=== PATIENT | male | born 1960 | race American Indian/Alaskan Native ===

== ENCOUNTER 2021-02-28 09:53 | Emergency (ER) | payer MEDICARE ==
--- NOTE | 2021-02-28 10:50 | XRay Report ---
CHEST 2 VIEWS INDICATION / CLINICAL INFORMATION: Chest Pain. COMPARISON: None available. FINDINGS: SUPPORT DEVICES: None. HEART / MEDIASTINUM: No significant abnormality. LUNGS / PLEURA: No significant pulmonary or pleural abnormality. No pneumothorax. ADDITIONAL FINDINGS: No significant additional findings. IMPRESSION: 1. No acute findings. Signer Name: Niels Orellana MD Signed: 02/28/2021 10:46 AM Workstation Name: [id number]
[2021-02-28 11:10] LABS: Basophils # (Auto) 0.1 K/mm3 (0.0-0.1); Basophils % (Auto) 2.4 % (0.0-1.8); Eosinophils # (Auto) 0.1 K/mm3 (0.0-0.4); Eosinophils % (Auto) 2.6 % (0.0-4.3); Hematocrit 46.6 % (35.5-45.6); Hemoglobin 15.2 gm/dl (11.8-15.2); Lymphocytes # (Auto) 0.9 K/mm3 (1.2-5.4); Lymphocytes % (Auto) 16.9 % (13.4-35.0); Mean Corpuscular HGB Conc 33 % (32-34); Monocytes # (Auto) 0.5 K/mm3 (0.0-0.8); Monocytes % (Auto) 9.4 % (0.0-7.3); Platelet Count 189 K/mm3 (140-440); Red Blood Count 6.86 M/mm3 (3.65-5.03); Red Cell Distribution Width 16.5 % (13.2-15.2)
[2021-02-28 11:22] LABS: Mean Corpuscular Volume 68 fl (84-94)
[2021-02-28 11:39] LABS: Alanine Aminotransferase 16 units/L (7-56); Albumin 4.6 g/dL (3.9-5); BUN/Creatinine Ratio 14; Blood Urea Nitrogen 14 mg/dL (9-20); Hemolysis Index 3
[2021-02-28] MEDS ORDERED: ALUM-MAG HYDROXIDE-SIMETHICONE 200-200-20MG/5ML ORAL LIQD 30 ML PO ONE (14:15)
[2021-02-28] MEDS ORDERED: LIDOCAINE VISCOUS 2% 15 ML ORAL LIQD PO ONE (14:15)
--- NOTE | 2021-02-28 14:19 | Emergency Department Report ---
ED Chest Pain HPI - General Chief Complaint: Chest Pain Stated Complaint: CHEST PAIN Time Seen by Provider: 02/28/21 14:15 Source: patient Mode of arrival: Ambulatory Limitations: No Limitations - History of Present Illness Initial Comments: 60-year-old male, no past medical history, presents to ED with epigastric pain. Patient states he has had "a funny feeling" in his epigastric area after eating at [employer] 2 days ago. Patient reports some nausea and small amount of emesis. Patient also states she coughed up a small amount of blood. He denies any shortness of breath at this time. He denies fever. He denies any leg pain or swelling. MD Complaint: chest pain -: days(s) (2) Onset: during rest Pain Location: epigastric Pain Radiation: none Severity: moderate Quality: other (Unable to describe) Consistency: intermittent Improves With: nothing Worsens With: nothing re: nausea, vomting. denies: dyspnea Other Symptoms: cough. denies: fever, leg swelling - Related Data Previous Rx's Medication Instructions Recorded Last Taken Type Pantoprazole [Protonix TAB] 20 mg PO QDAY #30 tablet. 02/28/21 Unknown Rx Allergies Allergy/AdvReac Type Severity Reaction Status Date / Time No Known Allergies Allergy Unverified 02/28/21 09:54 Heart Score - HEART Score History: Slightly suspicious EKG: Non-specific Age: 45-65 Risk factors: 1-2 risk factors Troponin: < normal limit HEART Score: 3 - EKG Read Time Time EKG Completed: 10:00 EKG Read Time: 10:02 ED Review of Systems ROS: Stated complaint: CHEST PAIN Other details as noted in HPI Comment: All other systems reviewed and negative Constitutional: denies: fever Respiratory: cough. denies: shortness of breath Cardiovascular: chest pain Gastrointestinal: abdominal pain, nausea, vomiting Musculoskeletal: other (Denies leg pain and swelling) ED Past Medical Hx - Past Medical History Previous Medical History?: No - Surgical History Additional Surgical History: BACK - Medications Home Medications: Home Medications Medication Instructions Recorded Confirmed Last Taken Type Pantoprazole [Protonix TAB] 20 mg PO QDAY #30 tablet. 02/28/21 Unknown Rx ED Physical Exam - General Limitations: No Limitations General appearance: alert, in no apparent distress - Head Head exam: Present: atraumatic, normocephalic - Eye Eye exam: Present: normal appearance, EOMI - ENT ENT exam: Present: mucous membranes moist - Neck Neck exam: Present: normal inspection - Respiratory Respiratory exam: Present: normal lung sounds bilaterally. Absent: respiratory distress - Cardiovascular Cardiovascular Exam: Present: normal rhythm, bradycardia - GI/Abdominal GI/Abdominal exam: Present: soft, tenderness (Epigastric). Absent: distended - Extremities Exam Extremities exam: Present: normal inspection. Absent: pedal edema, calf tenderness - Neurological Exam Neurological exam: Present: alert, oriented X3 - Psychiatric Psychiatric exam: Present: normal affect, normal mood - Skin Skin exam: Present: warm, dry, intact, normal color ED Course Vital Signs 02/28/21 02/28/21 02/28/21 10:05 12:23 16:05 Temperature 98.1 F Pulse Rate 45 L 47 L 52 L Respiratory 20 18 Rate Blood Pressure 145/67 136/77 Blood Pressure 147/74 [Right] O2 Sat by Pulse 100 100 100 Oximetry - Reevaluation(s) Reevaluation #1: 02/28/21 15:09 D-dimer result entered as "> 135". Spoke w/ lab engineer. She confirms D-dimer result is LESS THAN 135. ED Medical Decision Making - Lab Data Result diagrams: 02/28/21 10:33 02/28/21 13:43 - EKG Data -: EKG Interpreted by Me EKG shows normal: sinus rhythm, axis, intervals, QRS complexes Rate: bradycardia - EKG Data Interpretation: nonspecific ST-T wave kell - Radiology Data Radiology results: report reviewed, image reviewed - Medical Decision Making 60-year-old male presents to ED with epigastric pain x2 days. Eating out at a restaurant. He reports some associated nausea and vomiting. EKG shows some nonspecific changes. Troponin is negative x2. Remainder of labs are normal. Patient evidently had an episode of possible hemoptysis while here in the ED. D-dimer negative. O2 sats normal patient no respiratory distress. He will be discharged at this time. Patient information faxed to [facility] for urgent cardiology follow-up. - Differential Diagnosis Gastritis, pancreatitis, ACS, PE Critical care attestation.: If time is entered above; I have spent that time in minutes in the direct care o f this critically ill patient, excluding procedure time. ED Disposition Clinical Impression: Chest pain Disposition: HOME / SELF CARE / HOMELESS Is pt being admited?: No Condition: Stable Instructions: Nonspecific Chest Pain, Adult Prescriptions: Pantoprazole [Protonix TAB] 20 mg PO QDAY #30 tablet.dr Referrals: NATE SANCHEZ MD [Staff Physician] - 3-5 Days PRIMARY CAREMD [Referring] - 3-5 Days DELICIA CARRASCO MD [Staff Physician] - 3-5 Days Time of Disposition: 15:35
[2021-02-28 16:06] VITALS: BP 147/74
--- NOTE | 2021-03-01 10:38 | Electrocardiograph Report ---
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
--- NOTE | 2021-03-01 10:40 | Electrocardiograph Report ---
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 Compared to ECG 02/28/2021 10:00:38 No significant change noted. Electronically Signed On 03-01-2021 10:39:43 EDT by Blake Dietz
== END 2021-02-28 16:05 | disposition home or self-care (01) ==
LOC: ED 09:53
DX: R07.9 Chest pain, unspecified (principal)
CPT/HCPCS: 36415; 71046; 80053; 83690; 84132; 84484; 85025; 85379; 93005; 99284